=== PATIENT | male | born 1990 | race Caucasian/White ===

== ENCOUNTER 2021-05-06 10:57 | Emergency (ER) | payer OTHER, SELFPAY ==
--- NOTE | ~2021-05-06 | XR_ITS ---
EXAMINATION: XR chest 1V portable INDICATION: Transient alteration of awareness, drug overdose TECHNIQUE: Portable AP chest at 1135 hours COMPARISON: None available FINDINGS: There are minimal airspace opacities of the left lung base. No pleural effusion or pneumoth orax is identified. The cardiomediastinal silhouette is normal. IMPRESSION: 1. Minimal left basilar airspace opacity, consistent with atelectasis versus pneumonia. Reviewed, dictated and finalized at location A. IMPRESSION: 1. Minimal left basilar airspace opacity, consistent with atelectasis versus pn eumonia.
[2021-05-06 10:58] VITALS: BP 134/87; PULSE 93; RESP 23; TEMP 36.6; O2SAT 100
--- NOTE | 2021-05-06 11:03 | ECG_ITS ---
Measurements Intervals [place] Rate: 88 P: 32 SC: 122 QRS: 48 QRSD: 118 T: 38 QT: 335 QTc: 407 Interpretive Statements SINUS RHYTHM INCOMPLETE RIGHT BUNDLE BRANCH BLOCK MINIMAL Q WAVES- HIGH LATERAL LEADS BORDERLINE ECG Electronically Signed On 05-06-2021 20:47:35 CDT by Ruslan aPtino D.O.
[2021-05-06 11:10] VITALS: BP 142/88; PULSE 79; RESP 21; O2SAT 100
[2021-05-06] MEDS: SODIUM CHLORIDE 0.9% IV 1,000 ML 999 ML IV CONT (11:19)
[2021-05-06 11:25] LABS: Alveolar/Arterial O2 Gradient 22.2 mmHg; Base Excess ABG 0.9 mEq/l (+/-2.0); Fractional Inspired Oxygen 21 %; HCO3 ABG 24.9 mEq/l (22.0-26.0); Oxygen Content ABG 19.7 %vol (16.0-22.0); Oxygen Saturation ABG 96.5 % (95.0-100.0); Oxyhemoglobin 92.4 % THb (90.0-100.0); PCO2 ABG 37.8 mmHg (35.0-45.0); PO2 ABG 82.3 mmHg (80.0-100.0); PO2 FiO2 Ratio Arterial Blood 3.92 %; Total Hemoglobin 15.1 g/dL (12.0-18.0); pH ABG 7.436 (7.350-7.450)
[2021-05-06 11:26] LABS: Device ROOM AIR; Modified Allen's Test Pass; Site Drawn RIGHT RADIAL
[2021-05-06 11:30] LABS: Basophils Percent Auto 0.2 % (0.2-1.2); Eosinophils Absolute Auto 0.1 K/mm3 (0-0.3); Eosinophils Percent Auto 0.9 % (0-4.4); Hematocrit 45.5 % (42.0-52.0); Immature Granulocyte Absolute 0.06 K/mm3 (0.00-0.031); Immature Granulocyte Percent A 0.4 % (0-0.5); Lymphocytes Percent Auto 17.1 % (18.3-44.2); Mean Corpuscular Hemoglobin 30.1 pg (26-34); Mean Corpuscular Volume 91.4 fl (80-100); Mean Platelet Volume 10.3 fl (7.4-10.4); Monocytes Absolute Auto 0.8 K/mm3 (0.1-0.6); Monocytes Percent Auto 5.9 % (2.6-8.5); Neutrophils Absolute Auto 10.1 K/mm3 (1.3-6.7); Neutrophils Percent Auto 75.5 % (45.5-73.1); Platelet Count Result 240 k/mm3 (150-375); Red Blood Count 4.98 M/mm3 (4.6-6.20); Red Cell Distribution Width 12.6 % (11.5-14.5); White Blood Count 13.4 K/mm3 (4.5-10.0)
[2021-05-06 11:40] VITALS: BP 154/89; PULSE 88; RESP 31; RESP 33; TEMP 36.7; O2SAT 100
[2021-05-06 11:41] LABS: Acetaminophen < 10 ug/mL (10-30); Ethanol < 10 mg/dL (<10); Salicylate < 1.0 mg/dL (2-20)
[2021-05-06 11:43] LABS: Alanine Aminotransferase 19 U/L (4-50); Albumin Level 4.5 g/dL (3.5-5.1); Alkaline Phosphatase 92 U/L (38-126); Anion Gap 9 mmol/L (8-16); Aspartate Amino Transferase 23 U/L (17-59); Bilirubin,Total 0.4 mg/dL (0.2-1.3); Blood Urea Nitrogen 9 mg/dL (9-20); Calcium 9.3 mg/dL (8.4-10.2); Carbon Dioxide 27 mmol/L (22-30); Chloride 103 mmol/L (98-107); Estimated CRCL calculation 126 ml/min; Estimated Glomerular Filt Rate > 60; Glucose 106 mg/dL (75-110); Potassium 3.9 mmol/L (3.4-5.0); Sodium 139 mmol/L (137-145)
--- NOTE | 2021-05-06 11:44 | PC.NURSE ---
Patient has eye opening to loud verbal stimuli. When awake, he is noted to be restless and pulling at IV line, BP cuff, monitor leads, and pulse ox. He will attempt to answer questions but his speech is very slurred, quiet, and unable to be understood at this time. When left alone he returns to sleep quickly.
--- NOTE | 2021-05-06 12:15 | ED.GENADULT ---
HPI - General Adult General Chief complaint: Overdose Stated complaint: od Source: EMS and RN notes reviewed Mode of arrival: EMS History of Present Illness HPI narrative: Patient is 30 years old white male was transpassing, the police got called, the patient found to be lethargic and sleepy, the police called EMT who brought the patient to our emergency room for further evaluation. Patient told the police and EMT that he had 3 bottles of fentanyl, heroin and ice earlier this morning. Patient denying any symptoms at this time. Patient denies any fever, chills, nausea, vomiting, chest pain, shortness of breath, headache or abdominal pain. Review of Systems Review of Systems: ROS unobtainable: Yes unobtainable due to medical condition PMFSH Social History Social History Gender identity (if verbalized by the patient): Male Exam Narrative: Exam Narrative: General appearance: Well-developed, well-nourished, lethargic Skin: Normal color Head: Normocephalic, nontraumatic Eyes: Clear conjunctiva ENT: Oropharynx normal, ears normal, nose normal Neck: Supple, nontender Chest and respiratory: Airway patent, no respiratory distress, no accessory muscle use Heart: Regular rate/rhythm Abdomen: Soft, nontender, no organomegaly, quiet bowel sounds Vascular: Normal peripheral pulses, normal capillary refill. Musculoskeletal: Normal range of motion, nontender back Neurologic: Alert and oriented ?3 Course Course Emergency Course: Stable Reevaluation(s) Reevaluation #1: Patient suddenly decided to leave [place]. Currently patient is awake, alert and oriented x4, denying any symptoms, was able to walk in the emergency room without any abnormalities Date: 05/06/21 Time: 13:22 Vital Signs Vital signs: Vital Signs Temperature 36.6 C 05/06/21 10:58 Pulse Rate 93 05/06/21 10:58 Respiratory Rate 23 H 05/06/21 10:58 Blood Pressure 134/87 05/06/21 10:58 Pulse Oximetry 100 05/06/21 10:58 Temperature 36.7 C 05/06/21 11:40 Pulse Rate 88 05/06/21 11:40 Respiratory Rate 31 H 05/06/21 11:40 Blood Pressure 154/89 H 05/06/21 11:40 Pulse Oximetry 100 05/06/21 11:40 Medical Decision Making MDM Narrative Medical decision making narrative: Polydrug overdose Labs, chest x-ray, EKG, ordered. Further plan to follow, IV fluid ordered. Differential Diagnosis Differential Diagnosis: Polydrug use, Vital Signs Vital Signs: Vital Signs Temperature 36.6 C 05/06/21 10:58 Pulse Rate 93 05/06/21 10:58 Respiratory Rate 23 H 05/06/21 10:58 Blood Pressure 134/87 05/06/21 10:58 Pulse Oximetry 100 05/06/21 10:58 Temperature 36.7 C 05/06/21 11:40 Pulse Rate 88 05/06/21 11:40 Respiratory Rate 31 H 05/06/21 11:40 Blood Pressure 154/89 H 05/06/21 11:40 Pulse Oximetry 100 05/06/21 11:40 Lab Data Result diagrams: 05/06/21 11:17 05/06/21 11:17 Labs: Lab Results 05/06/21 05/06/21 05/06/21 Range/Units 11:17 11:17 11:17 WBC 13.4 H (4.5-10.0) K/mm3 RBC 4.98 (4.6-6.20) M/mm3 Hgb 15.0 (14.0-18.0) g/dL Hct 45.5 (42.0-52.0) % MCV 91.4 (80-100) fl MCH 30.1 (26-34) pg MCHC 33.0 (32-36) g/dl RDW 12.6 (11.5-14.5) % Plt Count 240 (150-375) k/mm3 MPV 10.3 (7.4-10.4) fl Immature Gran % (Auto) 0.4 (0-0.5) % Neut % (Auto) 75.5 H (45.5-73.1) % Lymph % (Auto) 17.1 L (18.3-44.2) % [place] % (Auto) 5.9 (2.6-8.5) % Eos % (Auto) 0.9 (0-4.4) % Baso % (Auto) 0.2 (0.2-1.2) % Lymph # (Auto) 2.30 (0.9-3.2) K/mm3 [place] # (Auto) 0.8 H (0.1-0.6) K/mm3 Eos # (Auto) 0.1 (0-0.3) K
== END 2021-05-06 12:08 | disposition left against medical advice (07) ==
PROVIDERS: Emergency Provider Emergency Medicine; PCP Emergency Medicine
DX: F19.20 Other psychoactive substance dependence, uncomplicated (principal)
CPT/HCPCS: 36415; 36600; 71045; 80053; 80307; 82805; 85025; 93005; 96360; 99284; J7030